=== PATIENT | male | born 1980 | race American Indian/Alaskan Native ===

== ENCOUNTER 2019-08-05 15:26 | Emergency (ER) | payer OTHER ==
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
[2019-08-05] MEDS ORDERED: traMADol 50 MG TAB PO ONE (21:18)
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
--- NOTE | 2019-08-05 21:52 | XRay Report ---
LUMBAR SPINE 3 VIEWS INDICATION / CLINICAL INFORMATION: low back pain. COMPARISON: None available. FINDINGS: VERTEBRAE: No fracture. No significant malalignment. DISC SPACES:Moderate discogenic degenerative disease L4-S1. Mild discogenic degenerative disease L2-4 FACET JOINTS:No significant abnormality. ADDITIONAL FINDINGS: None. Signer Name: Iván Swartz MD Signed: 08/05/2019 9:47 PM Workstation Name: [id number]
[2019-08-06 05:20] VITALS: BP 124/69
== END 2019-08-05 23:08 | disposition home or self-care (01) ==
LOC: ED 15:26
DX: S39.012A Strain of muscle, fascia and tendon of lower back, initial encounter (principal); I10 Essential (primary) hypertension; J45.909 Unspecified asthma, uncomplicated; Z79.899 Other long term (current) drug therapy; V49.19XA Passenger injured in collision with other motor vehicles in nontraffic accident, initial encounter; Y93.89 Activity, other specified; Y92.410 Unspecified street and highway as the place of occurrence of the external cause; Y99.8 Other external cause status
CPT/HCPCS: 72100; 99283